=== PATIENT | male | born 1975 | race Caucasian/White ===

== ENCOUNTER 2020-04-11 21:05 | Emergency (ER) | payer BC ==
--- NOTE | 2020-04-11 22:12 | TELE ---
HPI Do you have fever,cough or shortness of breath?: No - General Reason For Visit: VIRTUAL VISIT Time Seen by Provider: 04/11/20 22:08 History Source: Patient Exam Limitations: No Limitations - History of Present Illness Timing/Duration: unsure Severity: reports: mild Associated Symptoms: reports: denies symptoms 04/11/20 22:08 44 year old male with no pmhx reports that he needs screening for covid within 1972 hours of travel. patient has no symptoms. no sick contacts. 04/11/20 22:10 Past History - Travel History Traveled outside of the country in the last 30 days: No Close contact w/someone who was outside of country & ill: No Review of Systems - Review of Systems Able to Perform ROS?: Yes Limited Persian proficient: No Constitutional: No: Symptoms Reported, See HPI, Chills, Diaphoresis, Fever, Loss of Appetite, Malaise, Night Sweats, Weakness, Weight Stable, Unintentional Wgt. Loss, Unexplained wgt Loss, Other HEENTM: No: Symptoms Reported, See HPI, Eye Pain, Blurred Vision, Tearing, Recent change in vision, Double Vision, Cataracts, Ear Pain, Ocular Prothesis, Ear Discharge, Nose Pain, Nose Congestion, Tinnitus, Nose Bleeding, Hearing Loss, Throat Pain, Throat Swelling, Mouth Pain, Dental Problems, Difficulty Swallowing, Mouth Swelling, Other Respiratory: No: Symptoms reported, See HPI, Cough, Orthopnea, Shortness of Breath, SOB with Exertion, SOB at Rest, Stridor, Wheezing, Productive cough, Hemoptysis, Other Cardiac (ROS): No: Symptoms Reported, See HPI, Chest Pain, Edema, Irregular Heart Rate, Lightheadedness, Palpitations, Syncope, Chest Tightness, Other - Medical Decision Making 04/11/20 22:10 Covid screening P: covid order placed to be done at [facility] OFF note: video service unable to initiate on the patient end. evaluation done over the phone. Discharge Diagnosis at time of Disposition: Encounter for screening laboratory testing for COVID-19 virus - Referrals Follow-up Referral(s): Cassandra Pena MD [Primary Care Provider] - - Patient Instructions Discharge Instructions: [facility]-Coronavirus Instructions
== END 2020-04-11 22:50 | disposition home or self-care (01) ==
LOC: JVIRT 21:05
DX: Z11.59 Encounter for screening for other viral diseases (principal)
CPT/HCPCS: Q3014-GT; U0003